=== PATIENT | female | born 1980 | race Two or more races ===

== ENCOUNTER → 2019-12-08 | Outpatient (CLI) | payer OTHER ==
--- NOTE | 2019-12-08 16:41 | RAD ---
KNEE BILAT 3V History: Bilateral knee pain and swelling Comparison: None. Findings: 3 views of the bilateral knees for a total of 6 views are submitted. No acute fracture or dislocation is identified. There is mild tricompartmental osteoarthritic change of the right knee, also minimally of the left patellofemoral articulation. Some bony deformity of the left tibial tubercle is likely chronic. There is what probably represents a large loose body posteriorly on the left. Impression: 1. 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 There is a probable large loose body posteriorly on the left. Electronically signed by: Marco Rockwell MD (12/08/2019 4:38 PM) [facility]
== END ==
LOC: LAB 14:42
PROVIDERS: ATTEND Nurse Practitioner Gerontology
DX: M17.0 Bilateral primary osteoarthritis of knee (principal)
CPT/HCPCS: 73562